=== PATIENT | female | born 1940 | race Hispanic/Latino ===

== ENCOUNTER 2016-08-30 06:03 | Inpatient (IN) | payer MEDICARE, BC ==
[2016-08-29 11:46] VITALS: BMI 28.3
[2016-08-30] MEDS ORDERED: Rocuronium 10 mg/ml (5 ml) ONE (07:24)
[2016-08-30] MEDS ORDERED: Lidocaine 4% (Laryng-O-Jet) Kit MM ONE (07:24)
[2016-08-30] MEDS ORDERED: Propofol 10 mg/ml Inj (20 ML) ONE (07:24)
[2016-08-30] MEDS ORDERED: Midazolam 2 MG/2 ML VIAL ONE (07:24)
--- NOTE | 2016-08-30 07:46 | CP.PCM.CON ---
History of Present Illness - History of Present Illness History of Present Illness: 75 yo female with long standing hx of right leg sciatic pain worsening 3 mos ago suddenly with worsening radiation right buttock and thigh,+paresthesias, PMD sent pt to ER,baseline imaging suggestive of spinal stenosis,then pt seen by neurology,outpt MRI showing multi level lumbar spondylosis with HNP,no relief with multiple pain management injections,PT and pain meds,unable to sit, referred to neurosurgery for further eval,denies bowel/bladder incontinance, pelvic paresthesias or foot drop. Review of Systems - Review of Systems Systems not reviewed;Unavailable: Acuity of Condition - Cardiovascular Additional comments: CAD,cardiac stents - Musculoskeletal Musculoskeletal: Radiating Pain into Limb - Neurological Neurological: As Per HPI, Radicular Pain Past Patient History - Infectious Disease Hx of Infectious Diseases: None - Tetanus Immunizations Tetanus Immunization: Unknown - Past Medical History & Family History Past Medical History?: Yes - Past Social History Smoking Status: Never Smoked Chewing Tobacco Use: No Cigar Use: No Occupation: retired teacher Alcohol: Occasional Drugs: Denies Home Situation {Lives}: With Family Domestic Violence: Negative - CARDIAC Hx Cardiac Disorders: Yes - PULMONARY Hx Respiratory Disorders: No - NEUROLOGICAL Hx Neurological Disorder: No - HEENT Hx HEENT Problems: No - RENAL Hx Chronic Kidney Disease: No - ENDOCRINE/METABOLIC Hx Endocrine Disorders: No - HEMATOLOGICAL/ONCOLOGICAL Hx Blood Disorders: Yes Hx Cancer: Yes (bladder) - INTEGUMENTARY Hx Dermatological Problems: No - MUSCULOSKELETAL/RHEUMATOLOGICAL Hx Musculoskeletal Disorders: No - GASTROINTESTINAL Hx Gastrointestinal Disorders: No - GENITOURINARY/GYNECOLOGICAL Hx Genitourinary Disorders: No - PSYCHIATRIC Hx Psychophysiologic Disorder: No Hx Substance Use: No - SURGICAL HISTORY Hx Coronary Stent: Yes Hx Hysterectomy: Yes Other/Comment: bladder Meds Allergies/Adverse Reactions: Allergies Allergy/AdvReac Type Severity Reaction Status Date / Time erythromycin base Allergy NAUSEA Verified 06/08/16 15:01 metronidazole [From Flagyl] Allergy URTICARIA Verified 06/08/16 15:01 Penicillins Allergy RASH Verified 06/08/16 15:01 scopolamine Allergy VERY Verified 08/30/16 06:12 COMBATIVE Physical Exam - Constitutional Appears: Well, Non-toxic, No Acute Distress - Head Exam Head Exam: ATRAUMATIC, NORMAL INSPECTION, NORMOCEPHALIC - Eye Exam Eye Exam: EOMI, Normal appearance, PERRL Pupil Exam: NORMAL ACCOMODATION - ENT Exam ENT Exam: Mucous Membranes Moist - Neck Exam Neck exam: Positive for: Normal Inspection - Respiratory Exam Respiratory Exam: Clear to Auscultation Bilateral - Cardiovascular Exam Cardiovascular Exam: REGULAR RHYTHM, +S1, +S2 - GI/Abdominal Exam GI & Abdominal Exam: Normal Bowel Sounds, Soft Additional comments: no pelvic paresthesias - Rectal Exam Rectal Exam: Deferred - Extremities Exam Extremities exam: Positive for: normal inspection, pedal pulses present - Back Exam Back exam: paraspinal tenderness - Neurological Exam Neurological exam: Alert, Oriented x3 Additional comments: BATISTA x 4 antigravity with 5/5 motor strength,decreased sensation right buttock and RLE,+2 DTR's - Psychiatric Exam Psychiatric exam: Normal Affect, Normal Mood - Skin Skin Exam: Dry, Intact, Normal Color Results - Labs Labs: Laboratory Results - last 24 hr 08/30/16 08/30/16 06:05 07:00 POC Glucose (mg/dL) 183 H Blood Type A NEGATIVE Antibody Screen Negative BBK History Checked No verified bt - Impressions Impression: MRi imaging reviewed by Dr. Chamorro Assessment & Plan - Assessment and Plan (Free Text) Assessment: 75 yo female with lumbar spondylosis and RLE radiculapathy. Plan: surgical and non surgical options d/w pt,due to worsening symptoms and inability to sit,compromised ADL's,pt wishes to proceed with proposed right lumbar hemilaminotomy/formainotomy with Dr. Chamorro,risks and benefits of surgery d /w pt,expressed understanding and wishes to proceed.
[2016-08-30] MEDS ORDERED: Bupivacaine HCl 0.25% PF (10 ml) Inj ONE ×2 (07:57→08:08)
[2016-08-30] MEDS ORDERED: APROTININ/FIBRINOGEN(TISSEEL) ONE (07:58)
[2016-08-30] MEDS ORDERED: Thrombin Topical 5,000 IU Spray Kit ONE ×2 (07:58→08:07)
[2016-08-30] MEDS ORDERED: Lidocaine 2% w Epi 1:100,000 Inj IJ ONE (08:07)
[2016-08-30] MEDS ORDERED: Absorbable Gelatin Sponge Size 12-7 ONE (08:24)
[2016-08-30] MEDS ORDERED: Lactated Ringer's 1,000 ML IV ONE ×2 (08:54→13:15)
[2016-08-30] MEDS ORDERED: Labetalol 5mg/ml (4ml) ONE (09:22)
[2016-08-30] MEDS ORDERED: HEMOSTATIC MATRIX 10 ML DIS.NEEDLE TOP ONE (10:00)
[2016-08-30] MEDS ORDERED: Neostigmine Methylsulfate 3mg/3ml Syringe IV ONE (10:10)
[2016-08-30] MEDS ORDERED: Bupivacaine HCl 0.25% PF (10 ml) Inj IJ ONE (10:37)
[2016-08-30] MEDS ORDERED: HYDROmorphone 0.5 mg/0.5 ml ISec ONE (10:56)
[2016-08-30] MEDS: HYDROmorphone 0.5 mg/0.5 ml ISec IVP PRN ×6 (11:00→12:30)
[2016-08-30] MEDS ORDERED: Oxycodone/Acetaminophen 5/325 mg Tab PO PRN (11:12)
--- NOTE | 2016-08-30 11:18 | CP.PCM.HP ---
Past Patient History - Past Social History Smoking Status: Never Smoked - CARDIAC Hx Cardiac Disorders: Yes - PULMONARY Hx Respiratory Disorders: No - NEUROLOGICAL Hx Neurological Disorder: No - HEENT Hx HEENT Problems: No - RENAL Hx Chronic Kidney Disease: No - ENDOCRINE/METABOLIC Hx Endocrine Disorders: No - HEMATOLOGICAL/ONCOLOGICAL Hx Blood Disorders: Yes Hx Cancer: Yes (bladder) - INTEGUMENTARY Hx Dermatological Problems: No - MUSCULOSKELETAL/RHEUMATOLOGICAL Hx Musculoskeletal Disorders: No - GASTROINTESTINAL Hx Gastrointestinal Disorders: No - GENITOURINARY/GYNECOLOGICAL Hx Genitourinary Disorders: No - PSYCHIATRIC Hx Psychophysiologic Disorder: No Hx Substance Use: No - SURGICAL HISTORY Hx Coronary Stent: Yes Hx Hysterectomy: Yes Other/Comment: bladder Meds Allergies/Adverse Reactions: Allergies Allergy/AdvReac Type Severity Reaction Status Date / Time erythromycin base Allergy NAUSEA Verified 06/08/16 15:01 metronidazole [From Flagyl] Allergy URTICARIA Verified 06/08/16 15:01 Penicillins Allergy RASH Verified 06/08/16 15:01 scopolamine Allergy VERY Verified 08/30/16 06:12 COMBATIVE Results - Labs Labs: Laboratory Results - last 24 hr 08/30/16 08/30/16 08/30/16 06:05 06:45 07:00 POC Glucose (mg/dL) 183 H Blood Type A NEGATIVE Blood Type Confirm A NEGATIVE Antibody Screen Negative BBK History Checked No verified bt 08/30/16 11:14 POC Glucose (mg/dL) 179 H Blood Type Blood Type Confirm Antibody Screen BBK History Checked
--- NOTE | 2016-08-30 12:31 | CP.PCM.HP ---
History of Present Illness - History of Present Illness History of Present Illness: 75 yo F w/ history of lumbar spondylosis and RLE radiculapathy. Patient is POD 0 s/p right lumbar hemilaminotomy/formainotomy with Dr. Chamorro Seen and examined in PACU, post op. Doing well. No co, sob, RASCON, n/v/abd pain. PMH: bladder Ca, lumbar stenosis, CAD s/p stent placement PSH: cardiac stenting Allergies: erythromycin, metronidazole, PCN, scopolamine Meds: see reconciled list SH: denies tob,drug and etoh Present on Admission - Present on Admission Any Indicators Present on Admission: No Review of Systems - Review of Systems Review of Systems: see hpi Past Patient History - Infectious Disease Hx of Infectious Diseases: None - Tetanus Immunizations Tetanus Immunization: Unknown - Past Medical History & Family History Past Medical History?: Yes - Past Social History Smoking Status: Never Smoked Chewing Tobacco Use: No Cigar Use: No Occupation: retired teacher Alcohol: Occasional Drugs: Denies Home Situation {Lives}: With Family Domestic Violence: Negative - CARDIAC Hx Cardiac Disorders: Yes - PULMONARY Hx Respiratory Disorders: No - NEUROLOGICAL Hx Neurological Disorder: No - HEENT Hx HEENT Problems: No - RENAL Hx Chronic Kidney Disease: No - ENDOCRINE/METABOLIC Hx Endocrine Disorders: No - HEMATOLOGICAL/ONCOLOGICAL Hx Blood Disorders: Yes Hx Cancer: Yes (bladder) - INTEGUMENTARY Hx Dermatological Problems: No - MUSCULOSKELETAL/RHEUMATOLOGICAL Hx Musculoskeletal Disorders: No - GASTROINTESTINAL Hx Gastrointestinal Disorders: No - GENITOURINARY/GYNECOLOGICAL Hx Genitourinary Disorders: No - PSYCHIATRIC Hx Psychophysiologic Disorder: No Hx Substance Use: No - SURGICAL HISTORY Hx Coronary Stent: Yes Hx Hysterectomy: Yes Other/Comment: bladder Meds Allergies/Adverse Reactions: Allergies Allergy/AdvReac Type Severity Reaction Status Date / Time erythromycin base Allergy NAUSEA Verified 06/08/16 15:01 metronidazole [From Flagyl] Allergy URTICARIA Verified 06/08/16 15:01 Penicillins Allergy RASH Verified 06/08/16 15:01 scopolamine Allergy VERY Verified 08/30/16 06:12 COMBATIVE Physical Exam - Constitutional Appears: No Acute Distress - Eye Exam Eye Exam: EOMI, PERRL - ENT Exam ENT Exam: Mucous Membranes Moist - Respiratory Exam Respiratory Exam: Clear to Auscultation Bilateral, NORMAL BREATHING PATTERN. absent: Accessory Muscle Use, Rales - Cardiovascular Exam Cardiovascular Exam: +S1, +S2 - GI/Abdominal Exam GI & Abdominal Exam: Soft. absent: Tenderness - Extremities Exam Extremities exam: Positive for: pedal pulses present - Back Exam Back exam: vertebral tenderness (KAE drain in place) - Neurological Exam Neurological exam: Alert - Psychiatric Exam Psychiatric exam: Normal Affect, Normal Mood - Skin Skin Exam: Dry, Warm Results - Labs Labs: Laboratory Results - last 24 hr 08/30/16 08/30/16 08/30/16 06:05 06:45 07:00 POC Glucose (mg/dL) 183 H Blood Type A NEGATIVE Blood Type Confirm A NEGATIVE Antibody Screen Negative BBK History Checked No verified bt 08/30/16 11:14 POC Glucose (mg/dL) 179 H Blood Type Blood Type Confirm Antibody Screen BBK History Checked Assessment & Plan - Assessment and Plan (Free Text) Plan: 75 yo F w/ history of lumbar spondylosis and RLE radiculapathy. Patient is POD 0 s/p right lumbar hemilaminotomy/formainotomy with Dr. 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
--- NOTE | 2016-08-30 13:20 | RAD ---
PROCEDURE: Fluoroscopy up to 1 hr. HISTORY: LUMBAR LAMINECTOMY COMPARISON: None TECHNIQUE: Standard protocol for this study/examination. FINDINGS: Total fluoroscopic time (continuous mode) utilized during the procedure: 8.4 seconds. Submitted images from the current procedure: 1.0 IMPRESSION: Less than 1 hr fluoroscopic time utilized during performance of the procedure.
[2016-08-30] MEDS ORDERED: Benzocaine/Menthol (Cepacol) Lozenge PO ONE (13:30)
[2016-08-30] MEDS: Clindamycin 600 MG in Sodium Chloride 0.9% 100 ML IVPB SCH (17:31)
[2016-08-31] MEDS: Clindamycin 600 MG in Sodium Chloride 0.9% 100 ML IVPB SCH ×3 (00:45→16:30)
[2016-08-31] MEDS: Ergocalciferol 400 IU/0.05 ML PO SCH (08:49)
[2016-08-31] MEDS: Metoprolol Succinate 25 mg XL Tab PO SCH (08:50)
--- NOTE | 2016-08-31 08:53 | OP ---
PROCEDURE DATE: 08/30/2016 PREOPERATIVE DIAGNOSES: Herniated lumbar disk, and lumbar spondylolisthesis at L4-L5 and L5-S1. POSTOPERATIVE DIAGNOSES: Herniated lumbar disk, and lumbar spondylolisthesis at L4-L5 and L5-S1. PROCEDURE: Right L4-L5 hemilaminotomy, medial facetectomy, decompression, right L5-S1 hemilaminotomy , medial facetectomy, removal of herniated disk, L4-S1 posterolateral fusion. Fluoroscopy has been u sed. SURGEON: Rafi Chamorro MD. CHIEF CUSTOMER OFFICER: Kym Subramanian. Kym Subramanian stayed throughout the case from the beginni ng to the end and helped perform the surgery. DESCRIPTION OF PROCEDURE: The patient was brought to the operating room, administered general endotr acheal anesthesia, placed in a prone position on the Giancarlo table. Care was taken to protect all th e pressure points. Back of the lumbar area thoroughly prepped and draped in standard sterile manner after marking for skin incision for lumbar laminotomy at L4-S1. After prepping and draping the area, skin has been incised. Bleeding skin areas have been controlled with bipolar car parker. After usi ng a Bovie car parker, paraspinal muscles have been detached from attachment of spinous process and l carter of L4-L5, S1 on the right side, and a Ciera retractor has been applied to outer aspect of face t joint of L4-L5. Fluoroscopy has been used in order to confirm this level. Once this has been done under microscope magnification and illumination, the rest of the operation had been carried out. By using a high speed drill, the lamina of L4-L5, medial part of the facets of L4-L5 has been drilled. Drilling is continued until top and bottom of the ligamentum flavum has been seen. Drilling is als o continued on the medial part of the facets until the turn of ligamentum flavum is seen. Once this has been done and thinned out segments of lamina, medial part of the facets, ligamentum flavum has be en removed, decompression has been achieved. Similarly at L5-S1, hemilaminotomy, medial facetectomy have been performed decompressing this area. There was a herniated disk fragment to the foramina clinton t has been removed. This has been compressing the nerve root that has been very well decompressed. At this point, since the patient has a listhesis at L4-L5 and hemilaminotomy at L5-S1, posterolateral fusion has been performed by decorticating lateral aspect of facet joint, transverse process, and by placing the demineralized bone. After that, Giancarlo drain placed in the wound, brought out through a separate stab next to skin incision. Muscles and fascia closed with 1-0 Vicryl, subcutaneous with 3-0 Vicryl. Skin has been closed with intradermal 3-0 Vicryl stitches. The patient tolerated the procedure. After procedure, mobilized to the recovery room in stable condi tion. Rafi Chamorro MD cc: [id number] TT: 08/31/2016 08:52:15 jn
[2016-08-31] MEDS ORDERED: UBIDECARENONE 200 MG PO SCH (09:00)
--- NOTE | 2016-08-31 09:00 | CP.PCM.PN ---
Subjective - Date & Time of Evaluation Date of Evaluation: 08/31/16 Time of Evaluation: 08:30 - Subjective Subjective: Patient is s/p lumbar laminectomy, POD #1. The surgical site is painful, the Dilaudid NUMEROLOGIST was helpful but only controlled pain moderately. She denies side effects such as sedation, nausea, but does have some itch, only in the hands however. At home, she had been on Percocet 5/325mg since June, about one every 4-5 hours. She had failed 8 injections prior to surgery. Objective - Vital Signs/Intake and Output Vital Signs (last 24 hours): Temp Pulse Resp BP Pulse Ox 99.5 F 104 H 20 101/65 94 L 08/31/16 07:56 08/31/16 07:56 08/31/16 07:56 08/31/16 07:56 08/31/16 07:56 - Medications Medications: Current Medications Aspirin (Aspirin Chewable) 81 mg PO DAILY [facility] Cyclobenzaprine HCl (Flexeril) 10 mg PO TID PRN PRN Reason: Muscle spasm Last Admin: 08/31/16 00:08 Dose: 10 mg Docusate Sodium (Colace) 100 mg PO BID [facility] Last Admin: 08/30/16 17:32 Dose: Not Given Enoxaparin Sodium (Lovenox) 40 mg SC DAILY [facility] PRN Reason: Protocol Ergocalciferol (Calcidol) 400 iu PO DAILY [facility] Hydromorphone HCl (Dilaudid 0.2 Mg/Ml French Weaver) 0 mg IV PRN PRN; Protocol PRN Reason: Pain, severe (8-10) Last Admin: 08/30/16 13:05 Dose: 0 mg Clindamycin Phosphate 600 mg/ (Sodium Chloride) 104 mls @ 104 mls/hr IVPB Q8 [facility] Last Admin: 08/31/16 00:45 Dose: 104 mls/hr Metoprolol Succinate (Toprol Xl) 12.5 mg PO DAILY [facility] Ondansetron HCl (Zofran Odt) 4 mg PO Q8H PRN PRN Reason: Nausea/Vomiting Last Admin: 08/30/16 20:19 Dose: 4 mg Oxycodone/Acetaminophen (Percocet 5/325 Mg Tab) 1 tab PO Q4 PRN PRN Reason: Pain, moderate (4-7) Stop: 09/02/16 11:13 Oxycodone/Acetaminophen (Percocet 5/325 Mg Tab) 2 tab PO Q4 PRN PRN Reason: Pain, severe (8-10) Stop: 09/02/16 11:14 - Respiratory Exam Respiratory Exam: Clear to Ausculation Bilateral - Cardiovascular Exam Cardiovascular Exam: REGULAR RHYTHM - Back Exam Back Exam: paraspinal tenderness, tenderness, vertebral tenderness Assessment and Plan - Assessment and Plan (Free Text) Assessment: 75 yo woman, POD #1 s/p lumbar laminectomy. On Dilaudid NUMEROLOGIST overnight, no side effects. - start Oxycontin 10mg q12h - d/c Dilaudid NUMEROLOGIST, start Dilaudid 1mg q6h PRN - can transition to Percocet tomorrow
[2016-08-31 09:47] LABS: HEMATOCRIT 37.2 % (34.0-47.0); MEAN CELL VOLUME 92.1 fl (81.0-99.0); MEAN CORPUSCULAR HEMOGLOBIN 31.2 pg (27.0-31.0); MEAN CORPUSCULAR HGB CONC 33.9 g/dL (33.0-37.0); RED CELL DISTRIBUTION WIDTH 14.2 % (11.5-14.5); WHITE BLOOD COUNT 9.8 K/uL (4.8-10.8)
[2016-08-31 09:56] LABS: BLOOD UREA NITROGEN 8 mg/dl (7-17); CALCIUM 8.9 mg/dL (8.4-10.2); CARBON DIOXIDE 25 mmol/L (22-30); CHLORIDE 105 mmol/L (98-107); GFR AFRICAN-AMERICAN > 60; GLUCOSE,RANDOM 191 mg/dL (65-105); POTASSIUM 3.9 MMOL/L (3.6-5.0); SODIUM 140 mmol/l (132-148)
[2016-08-31] MEDS: oxyCODONE 10 mg ER Tab (oxyCONTIN) PO SCH ×2 (10:15→21:11)
--- NOTE | 2016-08-31 12:33 | CP.PCM.PN ---
Subjective - Date & Time of Evaluation Date of Evaluation: 08/31/16 Time of Evaluation: 09:25 - Subjective Subjective: Pt seen and examined at bedside, states she is in a lot of pain does not even want to be touched as everything hurt. She is not looking forward to Physical therapy but understands its necessary. has some urinary retention but states she has history of bladder cancer for which is followed at [facility] [place]. Objective - Vital Signs/Intake and Output Vital Signs (last 24 hours): Temp Pulse Resp BP Pulse Ox 99.5 F 104 H 20 104/65 94 L 08/31/16 07:56 08/31/16 08:50 08/31/16 07:56 08/31/16 08:50 08/31/16 07:56 - Medications Medications: Current Medications Acetaminophen (Tylenol 325mg Tab) 650 mg PO Q6 PRN PRN Reason: Headache Aspirin (Aspirin Chewable) 81 mg PO DAILY [facility] Last Admin: 08/31/16 08:45 Dose: 81 mg Cyclobenzaprine HCl (Flexeril) 10 mg PO TID PRN PRN Reason: Muscle spasm Last Admin: 08/31/16 00:08 Dose: 10 mg Docusate Sodium (Colace) 100 mg PO BID [facility] Last Admin: 08/31/16 08:46 Dose: 100 mg Enoxaparin Sodium (Lovenox) 40 mg SC DAILY [facility] PRN Reason: Protocol Ergocalciferol (Calcidol) 400 iu PO DAILY [facility] Last Admin: 08/31/16 08:49 Dose: Not Given Famotidine (Pepcid) 20 mg PO BID [facility] Last Admin: 08/31/16 09:51 Dose: 20 mg Clindamycin Phosphate 600 mg/ (Sodium Chloride) 104 mls @ 104 mls/hr IVPB Q8 [facility] Last Admin: 08/31/16 08:47 Dose: 104 mls/hr Metoprolol Succinate (Toprol Xl) 12.5 mg PO DAILY [facility] Last Admin: 08/31/16 08:50 Dose: 12.5 mg Ondansetron HCl (Zofran Odt) 4 mg PO Q8H PRN PRN Reason: Nausea/Vomiting Last Admin: 08/30/16 20:19 Dose: 4 mg Oxycodone HCl (Oxycontin Extended Release Tab) 10 mg PO Q12 [facility] Stop: 09/03/16 09:16 Last Admin: 08/31/16 10:15 Dose: 10 mg Oxycodone/Acetaminophen (Percocet 5/325 Mg Tab) 1 tab PO Q4 PRN PRN Reason: Pain, moderate (4-7) Stop: 09/02/16 11:13 Oxycodone/Acetaminophen (Percocet 5/325 Mg Tab) 2 tab PO Q4 PRN PRN Reason: Pain, severe (8-10) Stop: 09/02/16 11:14 - Labs Labs: 08/31/16 09:00 08/31/16 09:00 - Constitutional Appears: Non-toxic, No Acute Distress - Head Exam Head Exam: NORMOCEPHALIC - Eye Exam Eye Exam: Normal appearance - ENT Exam ENT Exam: Mucous Membranes Moist - Respiratory Exam Respiratory Exam: Clear to Ausculation Bilateral, NORMAL BREATHING PATTERN. absent: Rhonchi, Wheezes - Cardiovascular Exam Cardiovascular Exam: REGULAR RHYTHM, +S1, +S2 - GI/Abdominal Exam GI & Abdominal Exam: Soft, Tenderness, Normal Bowel Sounds - Back Exam Additional comments: drain has been removed, could not see any discharge on dressing (pt had a hard time staying on her side for full visualization) - Neurological Exam Neurological Exam: Alert, Awake, Oriented x3 Assessment and Plan - Assessment and Plan (Free Text) Assessment: 75 yo F w/ history of HTN, bladder cancer , lumbar spondylosis and RLE radiculapathy. Patient is POD 1 s/p right lumbar hemilaminotomy/formainotomy with Dr. 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 Josemanuel nj prn - clinda 400 mg Q8H -PT to start today HTN resume home meds -urinary retention (most likely due to anesthesia) if it persist bladder scan sunshine catheter will be ordered diet- heart healthy DVT lovenox SC
[2016-08-31] MEDS: Enoxaparin 40 mg Syringe SC SCH (16:34)
[2016-08-31] MEDS: Oxycodone/Acetaminophen 5/325 mg Tab PO PRN (23:05)
[2016-09-01] MEDS: Clindamycin 600 MG in Sodium Chloride 0.9% 100 ML IVPB SCH (01:24)
[2016-09-01] MEDS: oxyCODONE 10 mg ER Tab (oxyCONTIN) PO SCH ×2 (08:36→21:28)
[2016-09-01] MEDS: Ergocalciferol 400 IU/0.05 ML PO SCH (08:42)
[2016-09-01] MEDS: Enoxaparin 40 mg Syringe SC SCH (08:49)
[2016-09-01] MEDS: Lactulose 10 gm/15 ml Syrup PO PRN (12:07)
[2016-09-01] MEDS: Metoprolol Succinate 25 mg XL Tab PO SCH (13:30)
--- NOTE | 2016-09-01 17:22 | CP.PCM.PN ---
Subjective - Date & Time of Evaluation Date of Evaluation: 09/01/16 Time of Evaluation: 11:10 - Subjective Subjective: Pt seen and examined at bedside, states she is a lot of pain. refuses to roll to her side for full examination of her back or sit up. she did urinate on her own today per nurse just not a lot. all nurses notes reviewed Objective - Vital Signs/Intake and Output Vital Signs (last 24 hours): Temp Pulse Resp BP Pulse Ox 98.1 F 99 H 18 100/60 96 09/01/16 16:19 09/01/16 16:19 09/01/16 16:19 09/01/16 16:19 09/01/16 16:19 Intake and Output: 09/01/16 09/01/16 06:59 18:59 Intake Total 100 Output Total 850 Balance -750 - Medications Medications: Current Medications Acetaminophen (Tylenol 325mg Tab) 650 mg PO Q6 PRN PRN Reason: Headache Aspirin (Aspirin Chewable) 81 mg PO DAILY [facility] Last Admin: 09/01/16 08:00 Dose: 81 mg Cyclobenzaprine HCl (Flexeril) 10 mg PO TID PRN PRN Reason: Muscle spasm Last Admin: 09/01/16 08:45 Dose: 10 mg Docusate Sodium (Colace) 100 mg PO BID [facility] Last Admin: 09/01/16 08:43 Dose: 100 mg Enoxaparin Sodium (Lovenox) 40 mg SC DAILY [facility] PRN Reason: Protocol Last Admin: 09/01/16 08:49 Dose: 40 mg Ergocalciferol (Calcidol) 400 iu PO DAILY [facility] Last Admin: 09/01/16 08:42 Dose: Not Given Famotidine (Pepcid) 20 mg PO BID [facility] Last Admin: 09/01/16 08:43 Dose: 20 mg Lactulose (Enulose) 10 gm PO DAILY PRN PRN Reason: Constipation Last Admin: 09/01/16 12:07 Dose: 10 gm Metoprolol Succinate (Toprol Xl) 12.5 mg PO DAILY [facility] Last Admin: 09/01/16 13:30 Dose: 12.5 mg Ondansetron HCl (Zofran Odt) 4 mg PO Q8H PRN PRN Reason: Nausea/Vomiting Last Admin: 08/30/16 20:19 Dose: 4 mg Oxycodone HCl (Oxycontin Extended Release Tab) 10 mg PO Q12 [facility] Stop: 09/03/16 09:16 Last Admin: 09/01/16 08:36 Dose: 10 mg Oxycodone/Acetaminophen (Percocet 5/325 Mg Tab) 1 tab PO Q4 PRN PRN Reason: Pain, moderate (4-7) Stop: 09/02/16 11:13 Oxycodone/Acetaminophen (Percocet 5/325 Mg Tab) 2 tab PO Q4 PRN PRN Reason: Pain, severe (8-10) Stop: 09/02/16 11:14 Last Admin: 08/31/16 23:05 Dose: 2 tab - Labs Labs: 08/31/16 09:00 08/31/16 09:00 - Constitutional Appears: Non-toxic, No Acute Distress - Head Exam Head Exam: NORMOCEPHALIC - Eye Exam Eye Exam: Normal appearance - ENT Exam ENT Exam: Mucous Membranes Moist - Respiratory Exam Respiratory Exam: Clear to Ausculation Bilateral, NORMAL BREATHING PATTERN. absent: Rhonchi, Wheezes - Cardiovascular Exam Cardiovascular Exam: REGULAR RHYTHM, +S1, +S2 - GI/Abdominal Exam GI & Abdominal Exam: Soft, Normal Bowel Sounds. absent: Tenderness - Extremities Exam Extremities Exam: absent: Calf Tenderness, Pedal Edema - Back Exam Back Exam: muscle spasm, tenderness Additional comments: incision site neatly dressed, no discharge noted - Neurological Exam Neurological Exam: Alert, Awake, CN II-XII Intact, Oriented x3 Assessment and Plan - Assessment and Plan (Free Text) Assessment: 75 yo F w/ history of HTN, bladder cancer , lumbar spondylosis and RLE radiculapathy. Patient is POD 1 s/p right lumbar hemilaminotomy/formainotomy with Dr. Chamorro Plan: s/p right lumbar hemilaminotomy/formainotomy POD , doing well - pain management: as ordered - clinda 400 mg Q8H -continue with PT HTN resume home meds -urinary retention pt urinated on her own keep hydrated observe diet- heart healthy DVT lovenox SC discharge dispostion: for TCU tomorrow, discharge in the AM
[2016-09-01] MEDS: Oxycodone/Acetaminophen 5/325 mg Tab PO PRN (19:50)
[2016-09-02 08:11] VITALS: BP 131/75; PULSE 94; RESP 20; TEMP 98.4; O2SAT 95
[2016-09-02] MEDS: Enoxaparin 40 mg Syringe SC SCH (09:46)
[2016-09-02] MEDS: Metoprolol Succinate 25 mg XL Tab PO SCH (09:48)
[2016-09-02] MEDS: Lactulose 10 gm/15 ml Syrup PO PRN (09:49)
[2016-09-02] MEDS: oxyCODONE 10 mg ER Tab (oxyCONTIN) PO SCH (09:51)
--- NOTE | 2016-09-02 10:17 | CP.PCM.DIS ---
Provider - Provider Date of Admission: 08/30/16 11:09 Attending physician: Ramon Varma MD Primary care physician: Nikky Oates MD Hospital Course - Lab Results Lab Results: Most Recent Lab Values WBC 9.8 K/uL (4.8-10.8) 08/31/16 09:00 RBC 4.04 Mil/uL (3.80-5.20) 08/31/16 09:00 Hgb 12.6 g/dL (12.0-16.0) 08/31/16 09:00 Hct 37.2 % (34.0-47.0) 08/31/16 09:00 MCV 92.1 fl (81.0-99.0) 08/31/16 09:00 MCH 31.2 pg (27.0-31.0) H 08/31/16 09:00 MCHC 33.9 g/dL (33.0-37.0) 08/31/16 09:00 RDW 14.2 % (11.5-14.5) 08/31/16 09:00 Plt Count 145 K/uL (130-400) 08/31/16 09:00 Sodium 140 mmol/l (132-148) 08/31/16 09:00 Potassium 3.9 MMOL/L (3.6-5.0) 08/31/16 09:00 Chloride 105 mmol/L (98-107) 08/31/16 09:00 Carbon Dioxide 25 mmol/L (22-30) 08/31/16 09:00 Anion Gap 14 (10-20) 08/31/16 09:00 BUN 8 mg/dl (7-17) 08/31/16 09:00 Creatinine 0.6 mg/dL (0.7-1.2) L 08/31/16 09:00 Est GFR ( Amer) > 60 08/31/16 09:00 Est GFR (Non-Af Amer) > 60 08/31/16 09:00 POC Glucose (mg/dL) 179 mg/dL (65-110) H 08/30/16 11:14 Random Glucose 191 mg/dL (65-105) H 08/31/16 09:00 Calcium 8.9 mg/dL (8.4-10.2) 08/31/16 09:00 Blood Type A NEGATIVE 08/30/16 06:05 Blood Type Confirm A NEGATIVE 08/30/16 06:45 Antibody Screen Negative 08/30/16 06:05 BBK History Checked No verified bt 08/30/16 06:05 - Hospital Course Hospital Course: This is a 75 y/o female who had lumbar laminotomy Discharge Exam - Head Exam Head Exam: NORMOCEPHALIC Discharge Plan - Follow Up Plan Condition: GOOD Disposition: HOME/ ROUTINE
[2016-09-02] MEDS: Ergocalciferol 400 IU/0.05 ML PO SCH (12:50)
== END 2016-09-02 15:29 | DRG 460 ==
LOC: H.OPSURG 06:03 → H.MEDSURG1 11:09 → UNDODISIN 08-31 18:29
PROVIDERS: ADMIT Family Medicine; ATTEND Family Medicine
PROC: 0SG30Z1 (ICD-10-PCS; 2016-08-30)
PROC: 0SB40ZZ Excision of Lumbosacral Disc, Open Approach (ICD-10-PCS; principal; 2016-08-30 09:45)
DX: M47.26 Other spondylosis with radiculopathy, lumbar region (principal); I10 Essential (primary) hypertension; I25.10 Atherosclerotic heart disease of native coronary artery without angina pectoris; Z95.5 Presence of coronary angioplasty implant and graft; R20.9 Unspecified disturbances of skin sensation; Z88.1 Allergy status to other antibiotic agents; Z88.0 Allergy status to penicillin; M51.16 Intervertebral disc disorders with radiculopathy, lumbar region; M43.17 Spondylolisthesis, lumbosacral region; T88.59XA Other complications of anesthesia, initial encounter; T41.205A Adverse effect of unspecified general anesthetics, initial encounter; R33.0 Drug induced retention of urine; Z85.51 Personal history of malignant neoplasm of bladder

== ENCOUNTER 2016-09-02 15:20 | Inpatient (IN) | payer OTHER, BC ==
[2016-09-02 16:00] VITALS: BMI 28.8
[2016-09-02] MEDS ORDERED: Oxycodone/Acetaminophen 5/325 mg Tab PO PRN (16:08)
[2016-09-02 17:11] VITALS: RESP 20
[2016-09-02] MEDS: oxyCODONE 10 mg ER Tab (oxyCONTIN) PO SCH (21:16)
[2016-09-03] MEDS: oxyCODONE 10 mg ER Tab (oxyCONTIN) PO SCH ×2 (08:42→21:27)
[2016-09-03] MEDS: Metoprolol Succinate 25 mg XL Tab PO SCH (08:44)
[2016-09-03] MEDS: Enoxaparin 40 mg Syringe SC SCH (08:45)
[2016-09-03] MEDS: Cholecalciferol 400 Intl Units Tab PO SCH (08:45)
--- NOTE | 2016-09-03 12:41 | CP.PCM.HP ---
History of Present Illness - History of Present Illness History of Present Illness: This is a 75 y/o female who had a recent lumbar laminectomy and complained of a lot of pain post op. Had difficulty with mobility and gait due to pain. Assessed for therapy/ rehab. Medical Hx: Hypertension. Past Patient History - Infectious Disease Hx of Infectious Diseases: None - Tetanus Immunizations Tetanus Immunization: Unknown - Past Medical History & Family History Past Medical History?: Yes - Past Social History Smoking Status: Never Smoked - CARDIAC Hx Cardiac Disorders: Yes - PULMONARY Hx Respiratory Disorders: No - NEUROLOGICAL Hx Neurological Disorder: No - HEENT Hx HEENT Problems: No - RENAL Hx Chronic Kidney Disease: No - ENDOCRINE/METABOLIC Hx Endocrine Disorders: No - HEMATOLOGICAL/ONCOLOGICAL Hx Blood Disorders: Yes Hx Cancer: Yes (bladder) - INTEGUMENTARY Hx Dermatological Problems: No - MUSCULOSKELETAL/RHEUMATOLOGICAL Hx Musculoskeletal Disorders: No Hx Falls: No - GASTROINTESTINAL Hx Gastrointestinal Disorders: No - GENITOURINARY/GYNECOLOGICAL Hx Genitourinary Disorders: No - PSYCHIATRIC Hx Psychophysiologic Disorder: No Hx Substance Use: No - SURGICAL HISTORY Hx Coronary Stent: Yes Hx Hysterectomy: Yes Other/Comment: bladder - ANESTHESIA Hx Anesthesia: Yes Hx Anesthesia Reactions: No Hx Malignant Hyperthermia: No Meds Allergies/Adverse Reactions: Allergies Allergy/AdvReac Type Severity Reaction Status Date / Time erythromycin base Allergy NAUSEA Verified 09/02/16 16:01 metronidazole [From Flagyl] Allergy URTICARIA Verified 09/02/16 16:01 Penicillins Allergy RASH Verified 09/02/16 16:01 scopolamine Allergy VERY Verified 09/02/16 16:01 COMBATIVE Results - Vital Signs Recent Vital Signs: Last Vital Signs Temp 97.0 F L 09/03/16 08:30 Pulse 90 09/03/16 08:58 Resp 20 09/03/16 08:30 BP 111/66 09/03/16 08:58 Pulse Ox 98 09/03/16 08:58
[2016-09-03] MEDS: Oxycodone/Acetaminophen 5/325 mg Tab PO PRN ×2 (17:56→23:14)
[2016-09-03 22:34] LABS: RBC URINE 49 /hpf (0-3); URINE BACTERIA RARE (<OCC); URINE BILIRUBIN NEGATIVE (NEGATIVE); URINE BLOOD LARGE (NEGATIVE); URINE COLOR YELLOW (YELLOW); URINE GLUCOSE (UA) NEG (Normal); URINE KETONE NEGATIVE (NEGATIVE); URINE LEUKOCYTE ESTERASE LARGE Leu/uL (Negative); URINE PROTEIN NEGATIVE (NEGATIVE); URINE UROBILINOGEN 0.2-1.0 mg/dL (0.2-1.0); WBC CLUMPS FEW /hpf; WBC URINE 195 /hpf (0-5)
[2016-09-04] MEDS: Metoprolol Succinate 25 mg XL Tab PO SCH (09:28)
[2016-09-04] MEDS: Cholecalciferol 400 Intl Units Tab PO SCH (09:28)
[2016-09-04] MEDS: oxyCODONE 10 mg ER Tab (oxyCONTIN) PO SCH ×2 (09:29→20:23)
[2016-09-04] MEDS: Enoxaparin 40 mg Syringe SC SCH (09:30)
[2016-09-04] MEDS: Oxycodone/Acetaminophen 5/325 mg Tab PO PRN ×3 (12:36→23:25)
[2016-09-05] MEDS: Enoxaparin 40 mg Syringe SC SCH (08:05)
[2016-09-05] MEDS: Cholecalciferol 400 Intl Units Tab PO SCH (08:06)
[2016-09-05] MEDS: Metoprolol Succinate 25 mg XL Tab PO SCH (08:07)
[2016-09-05] MEDS: oxyCODONE 10 mg ER Tab (oxyCONTIN) PO SCH ×2 (08:09→21:06)
[2016-09-05] MEDS: Oxycodone/Acetaminophen 5/325 mg Tab PO PRN (19:33)
[2016-09-06] MEDS: Enoxaparin 40 mg Syringe SC SCH (08:15)
[2016-09-06] MEDS: Cholecalciferol 400 Intl Units Tab PO SCH (08:15)
[2016-09-06] MEDS: Metoprolol Succinate 25 mg XL Tab PO SCH (08:16)
[2016-09-06] MEDS: Oxycodone/Acetaminophen 5/325 mg Tab PO PRN ×3 (08:20→21:10)
--- NOTE | 2016-09-06 18:14 | CP.PCM.CON ---
History of Present Illness - History of Present Illness History of Present Illness: Dr Davis PMR/pain consultation on Kari Beckwith who is post op lumbar surgery by Dr Chamorro who performed a right L4/5 hemilaminectomy and medial foraminectomy with a decompression of the L5/S1 with hemilaminectomy and foraminectomy and L4- S1 fusion. She had months of right LE radicular pain and LBP and failed many injections and other conservative measures. Now already doing much better. Ambulating 300' without an assistive device. Had a bowel movement finally and feels much better. Hesitant with her pain medications which leads to an increase in pain at times Review of Systems - Constitutional Constitutional: absent: Anorexia, Chills - EENT Nose/Mouth/Throat: absent: Nasal Congestion - Cardiovascular Cardiovascular: absent: Chest Pain - Respiratory Respiratory: absent: Dyspnea, Hemoptysis - Gastrointestinal Gastrointestinal: Constipation (had a BM finally) - Musculoskeletal Musculoskeletal: Back Pain (but much improved already much better then pre-op status), Radiating Pain into Limb Past Patient History - Infectious Disease Hx of Infectious Diseases: None - Tetanus Immunizations Tetanus Immunization: Unknown - Past Medical History & Family History Past Medical History?: Yes - Past Social History Smoking Status: Never Smoked - CARDIAC Hx Cardiac Disorders: Yes - PULMONARY Hx Respiratory Disorders: No - NEUROLOGICAL Hx Neurological Disorder: No - HEENT Hx HEENT Problems: No - RENAL Hx Chronic Kidney Disease: No - ENDOCRINE/METABOLIC Hx Endocrine Disorders: No - HEMATOLOGICAL/ONCOLOGICAL Hx Blood Disorders: Yes Hx Cancer: Yes (bladder) - INTEGUMENTARY Hx Dermatological Problems: No - MUSCULOSKELETAL/RHEUMATOLOGICAL Hx Musculoskeletal Disorders: No Hx Falls: No - GASTROINTESTINAL Hx Gastrointestinal Disorders: No - GENITOURINARY/GYNECOLOGICAL Hx Genitourinary Disorders: No - PSYCHIATRIC Hx Psychophysiologic Disorder: No Hx Substance Use: No - SURGICAL HISTORY Hx Coronary Stent: Yes Hx Hysterectomy: Yes Other/Comment: bladder - ANESTHESIA Hx Anesthesia: Yes Hx Anesthesia Reactions: No Hx Malignant Hyperthermia: No Meds Allergies/Adverse Reactions: Allergies Allergy/AdvReac Type Severity Reaction Status Date / Time erythromycin base Allergy NAUSEA Verified 09/02/16 16:01 metronidazole [From Flagyl] Allergy URTICARIA Verified 09/02/16 16:01 Penicillins Allergy RASH Verified 09/02/16 16:01 scopolamine Allergy VERY Verified 04/01/17 16:01 COMBATIVE - Medications Medications: Current Medications Acetaminophen (Tylenol 325mg Tab) 650 mg PO Q6 PRN PRN Reason: Headache Aspirin (Aspirin Chewable) 81 mg PO DAILY [facility] Last Admin: 09/06/16 08:16 Dose: 81 mg Cyclobenzaprine HCl (Flexeril) 10 mg PO TID PRN PRN Reason: Muscle spasm Last Admin: 09/05/16 17:10 Dose: 10 mg Docusate Sodium (Colace) 100 mg PO BID [facility] Last Admin: 09/06/16 17:16 Dose: Not Given Famotidine (Pepcid) 20 mg PO BID [facility] Last Admin: 09/06/16 17:15 Dose: 20 mg Ibuprofen (Motrin Tab) 400 mg PO Q6 PRN PRN Reason: Pain, Mild (1-3) Last Admin: 09/05/16 13:17 Dose: 400 mg Lactic Acid (Lac-Hydrin 12% Lotion (225 G)) 1 applic TOP TID [facility] Last Admin: 09/06/16 17:15 Dose: 1 unit Lactulose (Enulose) 20 gm PO TID PRN PRN Reason: Constipation Metoprolol Succinate (Toprol Xl) 12.5 mg PO DAILY [facility] Last Admin: 09/06/16 08:16 Dose: 12.5 mg Ondansetron HCl (Zofran Odt) 4 mg PO Q8H PRN PRN Reason: Nausea/Vomiting Oxycodone/Acetaminophen (Percocet 5/325 Mg Tab) 1 tab PO Q6 PRN PRN Reason: Pain, moderate (4-7) Stop: 09/08/16 17:48 Oxycodone/Acetaminophen (Percocet 5/325 Mg Tab) 2 tab PO Q4 PRN PRN Reason: Pain, severe (8-10) Stop: 09/08/16 17:48 Last Admin: 09/06/16 14:52 Dose: 2 tab Sennosides (Senokot Tab) 17.2 mg PO HS [facility] Last Admin: 09/05/16 21:05 Dose: 17.2 mg Vitamin D (Vitamin D 400 Intl Units Tab) 400 intlu PO DAILY [facility] Last Admin: 09/06/16 08:15 Dose: 400 intlu Physical Exam - Constitutional Appears: Non-toxic, No Acute Distress - Head Exam Head Exam: ATRAUMATIC, NORMAL INSPECTION, NORMOCEPHALIC - Eye Exam Eye Exam: EOMI Pupil Exam: NORMAL ACCOMODATION - ENT Exam ENT Exam: Mucous Membranes Moist - Respiratory Exam Respiratory Exam: NORMAL BREATHING PATTERN - Cardiovascular Exam Cardiovascular Exam: REGULAR RHYTHM - GI/Abdominal Exam GI & Abdominal Exam: absent: Distended - Extremities Exam Extremities exam: Positive for: full ROM. Negative for: calf tenderness - Neurological Exam Neurological exam: Alert, CN II-XII Intact, Oriented x3 - Psychiatric Exam Psychiatric exam: Normal Affect, Normal Mood (good UE and LE strength) Results - Vital Signs Recent Vital Signs: Last Vital Signs Temp 97.9 F 09/06/16 16:46 Pulse 90 09/06/16 16:46 Resp 20 09/06/16 16:46 BP 106/59 L 09/06/16 16:46 Pulse Ox 97 09/06/16 16:46 Assessment & Plan - Assessment and Plan (Free Text) Plan: Pain is fairly well controlled with meds takes about an hour to kick in and I tried to have her take medications ahead of what may come. she is hesitant to take meds unless really necessary. continue PT/OT doing well otherwise no calf swelling or tenderness
[2016-09-07] MEDS: Oxycodone/Acetaminophen 5/325 mg Tab PO PRN ×3 (01:35→20:45)
[2016-09-07] MEDS: Metoprolol Succinate 25 mg XL Tab PO SCH (08:30)
[2016-09-07] MEDS: Cholecalciferol 400 Intl Units Tab PO SCH (08:30)
[2016-09-07] MEDS: oxyCODONE 10 mg ER Tab (oxyCONTIN) PO SCH (22:07)
[2016-09-08] MEDS: Metoprolol Succinate 25 mg XL Tab PO SCH (08:38)
[2016-09-08] MEDS: oxyCODONE 10 mg ER Tab (oxyCONTIN) PO SCH ×2 (08:39→21:31)
[2016-09-08] MEDS: Cholecalciferol 400 Intl Units Tab PO SCH (08:40)
--- NOTE | 2016-09-08 10:15 | CP.PCM.PN ---
Subjective - Date & Time of Evaluation Date of Evaluation: 09/04/16 Time of Evaluation: 09:40 - Subjective Subjective: patient is doing well. Stillwith a lot of pain Has no headcahes no chest apin or SOB. Objective - Vital Signs/Intake and Output Vital Signs (last 24 hours): Temp Pulse Resp BP Pulse Ox 97.3 F L 83 20 102/64 93 L 09/08/16 08:18 09/08/16 08:38 09/08/16 08:18 09/08/16 08:38 09/08/16 08:18 - Medications Medications: Current Medications Acetaminophen (Tylenol 325mg Tab) 650 mg PO Q6 PRN PRN Reason: Headache Aspirin (Aspirin Chewable) 81 mg PO DAILY [facility] [place] Last Admin: 09/08/16 08:40 Dose: 81 mg Cyclobenzaprine HCl (Flexeril) 10 mg PO TID PRN PRN Reason: Muscle spasm Last Admin: 09/07/16 16:57 Dose: 10 mg Docusate Sodium (Colace) 100 mg PO BID [facility] Last Admin: 09/08/16 08:41 Dose: Not Given Famotidine (Pepcid) 20 mg PO BID [facility] Last Admin: 09/08/16 08:40 Dose: 20 mg Ibuprofen (Motrin Tab) 400 mg PO Q6 PRN PRN Reason: Pain, Mild (1-3) Last Admin: 09/05/16 13:17 Dose: 400 mg Lactic Acid (Lac-Hydrin 12% Lotion (225 G)) 1 applic TOP TID [facility] Last Admin: 09/08/16 08:40 Dose: 1 unit Lactulose (Enulose) 20 gm PO TID PRN PRN Reason: Constipation Metoprolol Succinate (Toprol Xl) 12.5 mg PO DAILY [facility] [place] Last Admin: 09/08/16 08:38 Dose: 12.5 mg Ondansetron HCl (Zofran Odt) 4 mg PO Q8H PRN PRN Reason: Nausea/Vomiting Oxycodone HCl (Oxycontin Extended Release Tab) 10 mg PO Q12 [facility] [place] Stop: 09/10/16 21:01 Last Admin: 09/08/16 08:39 Dose: 10 mg Oxycodone/Acetaminophen (Percocet 5/325 Mg Tab) 1 tab PO Q6 PRN PRN Reason: Pain, moderate (4-7) Stop: 09/08/16 17:48 Last Admin: 09/07/16 01:35 Dose: 1 tab Oxycodone/Acetaminophen (Percocet 5/325 Mg Tab) 2 tab PO Q4 PRN PRN Reason: Pain, severe (8-10) Stop: 09/08/16 17:48 Last Admin: 09/07/16 20:45 Dose: 2 tab Sennosides (Senokot Tab) 17.2 mg PO [facility] Last Admin: 09/08/16 00:31 Dose: Not Given Vitamin D (Vitamin D 400 Intl Units Tab) 400 intlu PO DAILY [facility] Last Admin: 09/08/16 08:40 Dose: 400 intlu
--- NOTE | 2016-09-08 10:16 | CP.PCM.PN ---
Subjective - Date & Time of Evaluation Date of Evaluation: 09/05/16 Time of Evaluation: 10:00 - Subjective Subjective: Patient was able to do PT but still with pain Currently on Percocet and oxycontin. Has no fever Objective - Vital Signs/Intake and Output Vital Signs (last 24 hours): Temp Pulse Resp BP Pulse Ox 97.3 F L 83 20 102/64 93 L 09/08/16 08:18 09/08/16 08:38 09/08/16 08:18 09/08/16 08:38 09/08/16 08:18 - Medications Medications: Current Medications Acetaminophen (Tylenol 325mg Tab) 650 mg PO Q6 PRN PRN Reason: Headache Aspirin (Aspirin Chewable) 81 mg PO DAILY [facility] Last Admin: 09/08/16 08:40 Dose: 81 mg Cyclobenzaprine HCl (Flexeril) 10 mg PO TID PRN PRN Reason: Muscle spasm Last Admin: 09/07/16 16:57 Dose: 10 mg Docusate Sodium (Colace) 100 mg PO BID [facility] Last Admin: 09/08/16 08:41 Dose: Not Given Famotidine (Pepcid) 20 mg PO BID [facility] Last Admin: 09/08/16 08:40 Dose: 20 mg Ibuprofen (Motrin Tab) 400 mg PO Q6 PRN PRN Reason: Pain, Mild (1-3) Last Admin: 09/05/16 13:17 Dose: 400 mg Lactic Acid (Lac-Hydrin 12% Lotion (225 G)) 1 applic TOP TID [facility] Last Admin: 09/08/16 08:40 Dose: 1 unit Lactulose (Enulose) 20 gm PO TID PRN PRN Reason: Constipation Metoprolol Succinate (Toprol Xl) 12.5 mg PO DAILY [facility] Last Admin: 09/08/16 08:38 Dose: 12.5 mg Ondansetron HCl (Zofran Odt) 4 mg PO Q8H PRN PRN Reason: Nausea/Vomiting Oxycodone HCl (Oxycontin Extended Release Tab) 10 mg PO Q12 [facility] Stop: 09/10/16 21:01 Last Admin: 09/08/16 08:39 Dose: 10 mg Oxycodone/Acetaminophen (Percocet 5/325 Mg Tab) 1 tab PO Q6 PRN PRN Reason: Pain, moderate (4-7) Stop: 09/08/16 17:48 Last Admin: 09/07/16 01:35 Dose: 1 tab Oxycodone/Acetaminophen (Percocet 5/325 Mg Tab) 2 tab PO Q4 PRN PRN Reason: Pain, severe (8-10) Stop: 09/08/16 17:48 Last Admin: 09/07/16 20:45 Dose: 2 tab Sennosides (Senokot Tab) 17.[address] [facility] Last Admin: 09/08/16 00:31 Dose: Not Given Vitamin D (Vitamin D 400 Intl Units Tab) 400 intlu PO DAILY [facility] Last Admin: 09/08/16 08:40 Dose: 400 intlu
--- NOTE | 2016-09-08 10:18 | CP.PCM.PN ---
Subjective - Date & Time of Evaluation Date of Evaluation: 09/06/16 Time of Evaluation: 10:10 - Subjective Subjective: Patient is doing well with PT Able to ambulate without any assisstive device. Still with lower back pains. Objective - Vital Signs/Intake and Output Vital Signs (last 24 hours): Temp Pulse Resp BP Pulse Ox 97.3 F L 83 20 102/64 93 L 09/08/16 08:18 09/08/16 08:38 09/08/16 08:18 09/08/16 08:38 09/08/16 08:18 - Medications Medications: Current Medications Acetaminophen (Tylenol 325mg Tab) 650 mg PO Q6 PRN PRN Reason: Headache Aspirin (Aspirin Chewable) 81 mg PO DAILY [facility] Last Admin: 09/08/16 08:40 Dose: 81 mg Cyclobenzaprine HCl (Flexeril) 10 mg PO TID PRN PRN Reason: Muscle spasm Last Admin: 09/07/16 16:57 Dose: 10 mg Docusate Sodium (Colace) 100 mg PO BID [facility] Last Admin: 09/08/16 08:41 Dose: Not Given Famotidine (Pepcid) 20 mg PO BID [facility] Last Admin: 09/08/16 08:40 Dose: 20 mg Ibuprofen (Motrin Tab) 400 mg PO Q6 PRN PRN Reason: Pain, Mild (1-3) Last Admin: 09/05/16 13:17 Dose: 400 mg Lactic Acid (Lac-Hydrin 12% Lotion (225 G)) 1 applic TOP TID [facility] Last Admin: 09/08/16 08:40 Dose: 1 unit Lactulose (Enulose) 20 gm PO TID PRN PRN Reason: Constipation Metoprolol Succinate (Toprol Xl) 12.5 mg PO DAILY [facility] Last Admin: 09/08/16 08:38 Dose: 12.5 mg Ondansetron HCl (Zofran Odt) 4 mg PO Q8H PRN PRN Reason: Nausea/Vomiting Oxycodone HCl (Oxycontin Extended Release Tab) 10 mg PO Q12 [facility] Stop: 09/10/16 21:01 Last Admin: 09/08/16 08:39 Dose: 10 mg Oxycodone/Acetaminophen (Percocet 5/325 Mg Tab) 1 tab PO Q6 PRN PRN Reason: Pain, moderate (4-7) Stop: 09/08/16 17:48 Last Admin: 09/07/16 01:35 Dose: 1 tab Oxycodone/Acetaminophen (Percocet 5/325 Mg Tab) 2 tab PO Q4 PRN PRN Reason: Pain, severe (8-10) Stop: 09/08/16 17:48 Last Admin: 09/07/16 20:45 Dose: 2 tab Sennosides (Senokot Tab) 17.2 mg PO [facility] Last Admin: 09/08/16 00:31 Dose: Not Given Vitamin D (Vitamin D 400 Intl Units Tab) 400 intlu PO DAILY [facility] Last Admin: 09/08/16 08:40 Dose: 400 intlu
--- NOTE | 2016-09-08 10:19 | CP.PCM.PN ---
Subjective - Date & Time of Evaluation Date of Evaluation: 09/07/16 Time of Evaluation: 10:00 - Subjective Subjective: Stable Has no constipation Has no headaches No chest pain or SOB. Objective - Vital Signs/Intake and Output Vital Signs (last 24 hours): Temp Pulse Resp BP Pulse Ox 97.3 F L 83 20 102/64 93 L 09/08/16 08:18 09/08/16 08:38 09/08/16 08:18 09/08/16 08:38 09/08/16 08:18 - Medications Medications: Current Medications Acetaminophen (Tylenol 325mg Tab) 650 mg PO Q6 PRN PRN Reason: Headache Aspirin (Aspirin Chewable) 81 mg PO DAILY [facility] Last Admin: 09/08/16 08:40 Dose: 81 mg Cyclobenzaprine HCl (Flexeril) 10 mg PO TID PRN PRN Reason: Muscle spasm Last Admin: 09/07/16 16:57 Dose: 10 mg Docusate Sodium (Colace) 100 mg PO BID [facility] Last Admin: 09/08/16 08:41 Dose: Not Given Famotidine (Pepcid) 20 mg PO BID [facility] Last Admin: 09/08/16 08:40 Dose: 20 mg Ibuprofen (Motrin Tab) 400 mg PO Q6 PRN PRN Reason: Pain, Mild (1-3) Last Admin: 09/05/16 13:17 Dose: 400 mg Lactic Acid (Lac-Hydrin 12% Lotion (225 G)) 1 applic TOP TID [facility] Last Admin: 09/08/16 08:40 Dose: 1 unit Lactulose (Enulose) 20 gm PO TID PRN PRN Reason: Constipation Metoprolol Succinate (Toprol Xl) 12.5 mg PO DAILY [facility] Last Admin: 09/08/16 08:38 Dose: 12.5 mg Ondansetron HCl (Zofran Odt) 4 mg PO Q8H PRN PRN Reason: Nausea/Vomiting Oxycodone HCl (Oxycontin Extended Release Tab) 10 mg PO Q12 [facility] Stop: 09/10/16 21:01 Last Admin: 09/08/16 08:39 Dose: 10 mg Oxycodone/Acetaminophen (Percocet 5/325 Mg Tab) 1 tab PO Q6 PRN PRN Reason: Pain, moderate (4-7) Stop: 09/08/16 17:48 Last Admin: 09/07/16 01:35 Dose: 1 tab Oxycodone/Acetaminophen (Percocet 5/325 Mg Tab) 2 tab PO Q4 PRN PRN Reason: Pain, severe (8-10) Stop: 09/08/16 17:48 Last Admin: 09/07/16 20:45 Dose: 2 tab Sennosides (Senokot Tab) 17.2 mg PO HS [facility] Last Admin: 09/08/16 00:31 Dose: Not Given Vitamin D (Vitamin D 400 Intl Units Tab) 400 intlu PO DAILY [facility] Last Admin: 09/08/16 08:40 Dose: 400 intlu - Head Exam Head Exam: NORMAL INSPECTION - Eye Exam Eye Exam: Normal appearance - ENT Exam ENT Exam: Mucous Membranes Moist - Respiratory Exam Respiratory Exam: Clear to Ausculation Bilateral - Cardiovascular Exam Cardiovascular Exam: REGULAR RHYTHM - GI/Abdominal Exam GI & Abdominal Exam: Normal Bowel Sounds - Neurological Exam Neurological Exam: CN II-XII Intact, Oriented x3 Assessment and Plan (1) Gait disorder Status: Acute (2) Hypertension Status: Acute (3) Postlaminectomy syndrome, lumbar region Status: Acute - Assessment and Plan (Free Text) Plan: Contmeds Con ttx Cont PT. Painmeds.
--- NOTE | 2016-09-08 10:21 | CP.PCM.PN ---
Subjective - Date & Time of Evaluation Date of Evaluation: 09/08/16 Time of Evaluation: 10:19 - Subjective Subjective: Patient is stable Able to do all PT yesterday has minimal back pain No constipation Objective - Vital Signs/Intake and Output Vital Signs (last 24 hours): Temp Pulse Resp BP Pulse Ox 97.3 F L 83 20 102/64 93 L 09/08/16 08:18 09/08/16 08:38 09/08/16 08:18 09/08/16 08:38 09/08/16 08:18 - Medications Medications: Current Medications Acetaminophen (Tylenol 325mg Tab) 650 mg PO Q6 PRN PRN Reason: Headache Aspirin (Aspirin Chewable) 81 mg PO DAILY [facility] Last Admin: 09/08/16 08:40 Dose: 81 mg Cyclobenzaprine HCl (Flexeril) 10 mg PO TID PRN PRN Reason: Muscle spasm Last Admin: 09/07/16 16:57 Dose: 10 mg Docusate Sodium (Colace) 100 mg PO BID [facility] Last Admin: 09/08/16 08:41 Dose: Not Given Famotidine (Pepcid) 20 mg PO BID [facility] Last Admin: 09/08/16 08:40 Dose: 20 mg Ibuprofen (Motrin Tab) 400 mg PO Q6 PRN PRN Reason: Pain, Mild (1-3) Last Admin: 09/05/16 13:17 Dose: 400 mg Lactic Acid (Lac-Hydrin 12% Lotion (225 G)) 1 applic TOP TID [facility] Last Admin: 09/08/16 08:40 Dose: 1 unit Lactulose (Enulose) 20 gm PO TID PRN PRN Reason: Constipation Metoprolol Succinate (Toprol Xl) 12.5 mg PO DAILY [facility] Last Admin: 09/08/16 08:38 Dose: 12.5 mg Ondansetron HCl (Zofran Odt) 4 mg PO Q8H PRN PRN Reason: Nausea/Vomiting Oxycodone HCl (Oxycontin Extended Release Tab) 10 mg PO Q12 [facility] Stop: 09/10/16 21:01 Last Admin: 09/08/16 08:39 Dose: 10 mg Oxycodone/Acetaminophen (Percocet 5/325 Mg Tab) 1 tab PO Q6 PRN PRN Reason: Pain, moderate (4-7) Stop: 09/08/16 17:48 Last Admin: 09/07/16 01:35 Dose: 1 tab Oxycodone/Acetaminophen (Percocet 5/325 Mg Tab) 2 tab PO Q4 PRN PRN Reason: Pain, severe (8-10) Stop: 09/08/16 17:48 Last Admin: 09/07/16 20:45 Dose: 2 tab Sennosides (Senokot Tab) 17.2 mg PO HS [facility] Last Admin: 09/08/16 00:31 Dose: Not Given Vitamin D (Vitamin D 400 Intl Units Tab) 400 intlu PO DAILY [facility] Last Admin: 09/08/16 08:40 Dose: 400 intlu - Head Exam Head Exam: NORMAL INSPECTION - Eye Exam Eye Exam: Normal appearance - ENT Exam ENT Exam: Mucous Membranes Moist - Respiratory Exam Respiratory Exam: Clear to Ausculation Bilateral - Cardiovascular Exam Cardiovascular Exam: REGULAR RHYTHM - GI/Abdominal Exam GI & Abdominal Exam: Normal Bowel Sounds - Neurological Exam Neurological Exam: Awake, CN II-XII Intact, Oriented x3 Assessment and Plan (1) Gait disorder Status: Acute (2) Hypertension Status: Acute (3) Postlaminectomy syndrome, lumbar region Status: Acute - Assessment and Plan (Free Text) Plan: ont meds Cont tx Cont PT DC plan for tomorrow,
[2016-09-08] MEDS: Oxycodone/Acetaminophen 5/325 mg Tab PO PRN ×2 (13:32→17:01)
[2016-09-08] MEDS ORDERED: Oxycodone/Acetaminophen 5/325 mg Tab PO PRN (22:40)
[2016-09-09] MEDS ORDERED: Oxycodone/Acetaminophen 5/325 mg Tab PO PRN (01:00)
[2016-09-09] MEDS: oxyCODONE 10 mg ER Tab (oxyCONTIN) PO SCH (08:27)
[2016-09-09] MEDS: Cholecalciferol 400 Intl Units Tab PO SCH (08:28)
[2016-09-09] MEDS: Metoprolol Succinate 25 mg XL Tab PO SCH (08:29)
[2016-09-09 08:30] VITALS: BP 119/66; PULSE 95
[2016-09-09 08:36] VITALS: TEMP 96.8; O2SAT 96
--- NOTE | 2016-09-09 09:51 | CP.PCM.DIS ---
Provider - Provider Date of Admission: 09/02/16 16:04 Attending physician: Ramon Varma MD Primary care physician: Nikky Oates MD Diagnosis - Discharge Diagnosis (1) Gait disorder Status: Acute (2) Hypertension Status: Acute (3) Postlaminectomy syndrome, lumbar region Status: Acute Hospital Course - Lab Results Lab Results: Micro Results 09/03/16 21:00 Urine,Clean Catch Urine Culture - Final Klebsiella Pneumoniae Ssp Pneu Most Recent Lab Values Urine Color Yellow (YELLOW) 09/03/16 21:00 Urine Clarity Slighty-cloudy (Clear) 09/03/16 21:00 Urine pH 6.0 (5.0-8.0) 09/03/16 21:00 Ur Specific [place] 1.008 (1.003-1.030) 09/03/16 21:00 Urine Protein Negative mg/dL (NEGATIVE) 09/03/16 21:00 Urine Glucose (UA) Neg mg/dL (Normal) 09/03/16 21:00 Urine Ketones Negative mg/dL (NEGATIVE) 09/03/16 21:00 Urine Blood Large (NEGATIVE) 09/03/16 21:00 Urine Nitrate Positive (NEGATIVE) H 09/03/16 21:00 Urine Bilirubin Negative (NEGATIVE) 09/03/16 21:00 Urine Urobilinogen 0.2-1.0 mg/dL (0.2-1.0) 09/03/16 21:00 Ur Leukocyte Esterase Large Jorge A/uL (Negative) 09/03/16 21:00 Urine RBC (Auto) 49 /hpf (0-3) H 09/03/16 21:00 Urine WBC Clumps (Auto) Few /hpf (NONE) H 09/03/16 21:00 Urine Microscopic WBC 195 /hpf (0-5) H 09/03/16 21:00 Ur Squamous Epith Cells 1 /hpf (0-5) 09/03/16 21:00 Urine Bacteria Rare (<OCC) 09/03/16 21:00 - Hospital Course Hospital Course: This is a 75 y/o female admitted for Discharge Exam - Head Exam Head Exam: NORMAL INSPECTION Discharge Plan - Follow Up Plan Condition: GOOD Disposition: HOME/ ROUTINE Instructions: Laminectomy (DC) Referrals: Rafi Chamorro MD [Staff Provider] - Nikky Oates MD [Primary Care Provider] -
== END 2016-09-09 10:30 | disposition home or self-care (01) | DRG 950 ==
LOC: H.TCU 16:04
PROVIDERS: ADMIT Family Medicine; ATTEND Family Medicine
PROC: F08Z4ZZ Home Management Treatment (ICD-10-PCS; principal; 2016-09-02)
PROC: F07Z9ZZ Gait Training/Functional Ambulation Treatment (ICD-10-PCS; 2016-09-02)
PROC: F07L6ZZ Therapeutic Exercise Treatment of Musculoskeletal System - Lower Back / Lower Extremity (ICD-10-PCS; 2016-09-02)
DX: Z48.89 Encounter for other specified surgical aftercare (principal); I10 Essential (primary) hypertension; M96.1 Postlaminectomy syndrome, not elsewhere classified; Z88.1 Allergy status to other antibiotic agents; Z88.0 Allergy status to penicillin; R26.9 Unspecified abnormalities of gait and mobility